=== PATIENT | male | born 1950 | race Caucasian/White ===

== ENCOUNTER 2020-03-25 22:29 | Emergency (ER) | payer MEDICARE ==
[~2020-03-25] VITALS: Ht 182.9 cm; Wt 63.0 kg
[2020-03-25 22:42] LABS: BASOPHILS % 0.2 % (0.0-1.0); EOSINOPHILS % 0.2 % (0.0-6.0); HEMATOCRIT 27.6 % (38.2-49.6); HEMOGLOBIN 9.1 g/dL (14.0-18.0); LYMPHOCYTES # (AUTO) 0.9 (1.0-3.2); LYMPHOCYTES % 7.1 % (18.0-39.1); MEAN CORPUSCULAR HEMOGLOBIN 30.8 pg (28-32); MEAN CORPUSCULAR VOLUME 93.6 fL (81-99); MONOCYTES # (AUTO) 1.2 (0.2-0.8); MONOCYTES % 8.9 % (4.4-11.3); NEUTROPHILS # (AUTO) 10.8 (2.1-6.9); NEUTROPHILS % 82.9 % (38.7-80.0); PLATELET COUNT 252 x10e3/uL (140-360); RED BLOOD COUNT 2.95 x10e6/uL (4.3-5.7); RED CELL DISTRIBUTION WIDTH 13.5 % (11.7-14.4)
[2020-03-25] MEDS ORDERED: ASPIRIN 325 MG TAB PO ONE (22:45)
[2020-03-25 22:50] VITALS: BP 104/78
--- NOTE | 2020-03-25 22:51 | Emergency Department Note ---
History of Present Illnes History of Present Illness Chief Complaint: Chest Pain History of Present Illness This is a 69 year old male Chief Complaint Comment 69 Y/O MALE PT AAOX3 REPORTS INTERMITTENT CHEST PAIN X4 DAYS, SENT TO ER BY PCP, DR. Mickey SANCHES, FOR EVAL;. Historian: Patient Arrival Mode: Car Hospice Team Lead Required: No Onset (how long ago): day(s) (4) Location: [place] Quality: sharp Radiation: Reports non-radiation Severity: moderate Onset quality: gradual Duration (how long): day(s) (4) Timing of current episode: constant Progression: unchanged Chronicity: new Context: Denies recent illness, Denies recent surgery Relieving factors: none Exacerbating factors: none Associated symptoms: Reports denies other symptoms Treatments prior to arrival: other ([place]) Past Medical/Family History Physician Review I have reviewed the patient's past medical and family history. Any updates have been documented here. Past Medical History Recent Fever: No Clinical Suspicion of Infectio: No New/Unexplained Change in Ment: No Review of Systems Review of Systems Constitutional: Reports no symptoms EENTM: Reports no symptoms Cardiovascular: Reports chest pain Respiratory: Reports no symptoms Gastrointestinal: Reports no symptoms Genitourinary: Reports no symptoms Musculoskeletal: Reports no symptoms Integumentary: Reports no symptoms Neurological: Reports no symptoms Psychological: Reports no symptoms Endocrine: Reports no symptoms Hematological/Lymphatic: Reports no symptoms Physical Exam Related Data Allergies: Coded Allergies: No Known Allergies (Unverified , 03/25/20) Triage Vital Signs Vital Signs Date Time Temp Pulse Resp B/P (MAP) Pulse Ox O2 Delivery O2 Flow Rate FiO2 03/25/20 22:36 99.1 94 17 119/87 96 Room Air Vital signs reviewed: Yes Physical Exam CONSTITUTIONAL Constitutional: Present well-developed, Present well-nourished HENT HENT: Present normocephalic, Present atraumatic, Present oropharynx clear/moist, Present nose normal HENT L/R: Present left ext ear normal, Present right ext ear normal EYES Eyes: Reports PERRL, Reports conjunctivae normal NECK Neck: Present ROM normal PULMONARY Pulmonary: Present effort normal, Present breath sounds normal CARDIOVASCULAR Cardiovascular: Present regular rhythm, Present heart sounds normal, Present capillary refill normal, Present normal rate GASTROINTESTINAL Abdominal: Present soft, Present nontender, Present bowel sounds normal GENITOURINARY Genitourinary: Present exam deferred SKIN Skin: Present warm, Present dry MUSCULOSKELETAL Musculoskeletal: Present ROM normal NEUROLOGICAL Neurological: Present alert, Present oriented x 3, Present no gross motor or sensory deficits PSYCHOLOGICAL Psychological: Present mood/affect normal, Present judgement normal Results Laboratory Result Diagram: 03/25/20 5628 Laboratory Laboratory Tests Test 03/25/20 22:35 White Blood Count 13.03 x10e3/uL (4.8-10.8) Red Blood Count 2.95 x10e6/uL (4.3-5.7) Hemoglobin 9.1 g/dL (14.0-18.0) Hematocrit 27.6 % (38.2-49.6) Mean Corpuscular Volume 93.6 fL (81-99) Mean Corpuscular Hemoglobin 30.8 pg (28-32) Mean Corpuscular Hemoglobin Concent 33.0 g/dL (31-35) Red Cell Distribution Width 13.5 % (11.7-14.4) Platelet Count 252 x10e3/uL (140-360) Neutrophils (%) (Auto) 82.9 % (38.7-80.0) Lymphocytes (%) (Auto) 7.1 % (18.0-39.1) Monocytes (%) (Auto) 8.9 % (4.4-11.3) Eosinophils (%) (Auto) 0.2 % (0.0-6.0) Basophils (%) (Auto) 0.2 % (0.0-1.0) Neutrophils # (Auto) 10.8 (2.1-6.9) Lymphocytes # (Auto) 0.9 (1.0-3.2) Monocytes # (Auto) 1.2 (0.2-0.8) Eosinophils # (Auto) 0.0 (0.0-0.4) Basophils # (Auto) 0.0 (0.0-0.1) Absolute Immature Granulocyte (auto 0.09 x10e3/uL (0-0.1) Lab results reviewed: Yes Imaging Imaging results reviewed: Yes Procedures 12 Lead ECG Interpretation ECG Interpretation : ECG: ECG 1 Hospice Team Lead: Interpreted by ED physician Date: Mar 25, 2020 Rhythm: sinus rhythm Rate: normal BPM: 93 QRS axis: normal ST segments normal: Yes T waves normal: Yes Clinical Impression: non-specific ECG Assessment & Plan Medical Decision Making MDM 69-year-old male with a past medical history significant for CHF presents for chest pain 4 days. Examination shows vital signs within normal limits, stable. Initial differential includes ACS versus CHF exacerbation versus pneumonia versus skeletal pain. Cardio-Pulmonary workup shows likely LLL PNA. Cardiac enzymes WNL. Discussed patient with Dr. Sanches and will add Augmentin to his Zpack prescribed earlier. Will f/u w/ zAeem's office on Tuesday 03/27. Patient appropriate for discharge. Reassessment Reassessment time: 22:51 Reassessment Well appearing, NAD Assessment & Plan Final Impression: (1) Pneumonia Depart Disposition: HOME, SELF-CARE Last Vital Signs Date Time Temp Pulse Resp B/P (MAP) Pulse Ox O2 Delivery O2 Flow Rate FiO2 03/25/20 22:36 99.1 94 17 119/87 96 Room Air Home Meds Active Scripts Amoxicillin/Potassium Clav (AUGMENTIN 875-125 TABLET) 1 Each Tablet, 1 TAB PO BID for 7 Days, #14 TAB Prov:CLAUDIA RUIZ MD 03/25/20 Medications in the ED Aspirin 325 mg ONCE ONCE PO ; Start 03/25/20 at 22:45; Stop 03/25/20 at 22:46; Status UNV CLAUDIA RUIZ MD Mar 25, 2020 22:51
[2020-03-25] MEDS ORDERED: ASPIRIN 325 MG TAB ONE (22:54)
--- OUTSIDE RECORDS SUMMARY | 2020-03-25 23:16 | XMS REPORT | Continuity of Care Document ---
Author Author [facility] Organization [facility] Address [address] [place] [address] Phone Unavailable Care Team Providers Care Police Commissioner Name Role Phone Unavailable Unavailable Payers Payer Name Policy Type Policy Number Effective Date Expiration Date S ource Problems This patient has no known problems. Allergies, Adverse Reactions, Alerts Allergy Name Allergy Type Status Severity Reaction(s) Onset Date Inacti ve Date Treating Clinician Comments Source No Known Allergies DA Active U 2017-12-01 00:00:00 [facility] Medications This patient has no known medications. Procedures This patient has no known procedures. Encounters Start Date/Time End Date/Time Encounter Type Admission Type [facility] Facility Care Department Encounter ID Source 2020-03-25 09:01:02 Outpatient [facility] [id number] [facility] 2019-10-04 09:15:00 2019-10-04 09:15:00 Outpatient [facility] [id number] [facility] 2018-12-06 08:59:00 2018-12-06 08:59:[address] [facility] [id number] [facility] Results This patient has no known results.
[2020-03-25 23:22] LABS: ALBUMIN/GLOBULIN RATIO 0.8 (0.8-2.0); CALCIUM 9.4 mg/dL (8.4-10.2); CREATININE, SERUM 3.19 mg/dL (0.72-1.25)
--- NOTE | 2020-03-25 23:25 | Diagnostic Imaging Report ---
EXAMINATION: CHEST SINGLE (PORTABLE) INDICATION:CP COMPARISON: None FINDINGS: Cardiomegaly. Increased interstitial perihilar opacities likely represent a degree of pulmonary vascular congestion. Patchy retrocardiac opacity with obscuration of left hemidiaphragm. No pneumothorax. IMPRESSION: Cardiomegaly with pulmonary vascular congestion. No edema. Patchy left basilar opacity could represent atelectasis or pneumonia in the appropriate clinical setting. Signed by: Dylan Bowen MD on 03/25/2020 11:22 PM
[2020-03-25] MEDS ORDERED: AUGMENTIN 875-1 EACH PO (23:48)
== END 2020-03-25 23:50 | disposition home or self-care (01) ==
LOC: ER 23:10
DX: J18.9 Pneumonia, unspecified organism (principal); R50.9 Fever, unspecified; R07.89 Other chest pain; I50.9 Heart failure, unspecified
CPT/HCPCS: 36415; 71045; 80053; 83690; 83880; 84484; 85025; 93005; 99283